=== PATIENT | male | born 1980 | race Two or more races ===

== ENCOUNTER 2016-03-13 09:48 | Emergency (ER) | payer OTHER ==
[2016-03-13] MEDS ORDERED: NS 1,000 ML IV ONE ×2 (09:52→10:13)
[2016-03-13] MEDS ORDERED: ONDANSETRON 4 MG/2 ML VIAL IVP ONE ×2 (09:52→11:02)
[2016-03-13 10:02] VITALS: RESP 16
[2016-03-13] MEDS ORDERED: LORazepam 2 MG/ML INJ IVP ONE (10:10)
[2016-03-13] MEDS ORDERED: FAMOTIDINE 20 MG/2 ML SDV IVP ONE (10:13)
--- NOTE | 2016-03-13 10:18 | EDPHY ---
[id number]. Source: Patient Exam Limitations: No limitations - Personal History Current Tetanus/Diphtheria Vaccine: Unsure Current Tetanus Diphtheria and Acellular Pertussis (TDAP): Unsure - Medical/Surgical History Hx Asthma: No Hx Chronic Respiratory Disease: No Hx Diabetes: No Hx Cardiac Disease: No Hx Renal Disease: No Hx Cirrhosis: No Hx Alcoholism: Yes Hx HIV/AIDS: No Hx Splenectomy or Spleen Trauma: No Other PMH: ETOH - Family History Significant Family History: No pertinent family hx - Social History Smoking Status: Never smoked Alcohol Use: Heavy (Binge drinker) Time Seen by Provider: 03/13/16 10:14 HPI/ROS: HPI: 35-year-old male presents to urgent care with chief concern nausea and vomiting. Reports drinking a 24 pack of beer every day for the past week. Last drink yesterday afternoon 4 p.m.. Reports mild 3/10 headache, mild tremors, nausea and vomiting. He denies fever, chills, dizziness, visual disturbance, visual or auditory hallucinations, tactile disturbance, sweating, shortness of breath, chest pain, abdominal pain, or diarrhea. He is a binge drinker who has withdrawn multiple times in the past. He denies ever having a seizure. He denies any physical trauma. ROS:10 point review of systems is negative other than as stated in HPI (Arabella Pisano) - Physical Exam Exam: Temp 36.4, heart rate 86, respiratory rate 16, blood pressure 145/99, 94% on room air, CIWA 9 General: Awake, alert, calm, cooperative. Mild distress Head: Normalocephalic. Atraumatic. EENT: PERRLA. EOMI. No pallor or injection. Anicteric. No nystagmus. No injection. TMs intact bilaterally with normal landmarks. No rhinnorhea, nasal passages clear. Oropharynx without erythema or lesions. Neck: Supple, nontender. No lymphadenopathy. Full range of motion. No meningismus. Respiratory: Breathing unlabored. Breath sounds equal bilaterally and clear to auscultation. No adventitious sounds. CV: Chest nontender, atraumatic. Heart rate regular. No murmur, distal pulses 2+ bilaterally. Brisk cap refill all extremities. GI: Abdomen soft, nontender. No organomegaly appreciated. Bowel sounds normoactive and positive x4 quadrants. Neuro: Alert. Oriented x 3. Speech clear. Nonfocal cranial nerves throughout. Sensation intact all extremities. Minor hand tremors. No tongue fasciculations. Skin: Skin warm, dry, intact. No rashes, abrasions, or lacerations. Skin turgor normal. Extremities: Full range of motion in all 4 extremities. Strength 5+ all extremities. (Arabella Pisano) Constitutional: Initial Vital Signs Temperature (C) 36.4 C 03/13/16 10:01 Heart Rate 86 03/13/16 10:01 Respiratory Rate 16 03/13/16 10:01 Blood Pressure 145/99 H 03/13/16 10:01 O2 Sat (%) 94 03/13/16 10:01 O2 Delivery Mode Room Air Allergies/Adverse Reactions: No Known Allergies Allergy (Verified 03/13/16 10:01) Home Medications: Medication Instructions Recorded Zofran Odt 02/25/16 Lorazepam [Ativan] 1 mg PO Q8 PRN #2 tablet 03/13/16 Ondansetron Odt [Zofran Odt 4 mg 4 mg PO Q4 PRN #6 tab 03/13/16 (*)] Medical Decision Making ED Course/Re-evaluation: This 35-year-old male presents to the urgent care because he has nausea and vomiting after finishing a binge of drinking yesterday afternoon. He reports drinking 24 beers per day for the past 5-7 days. Vitals are stable. Heart rate 86, blood pressure 145/99. His CIWA score is a 9. We will give him 2 L normal saline, 4 mg IV Zofran, 1 mg IV Ativan. I have offered transfer to the [facility] for alcohol withdrawal assistance and patient refuses. His niece is present in the room with him. 11:15-after 2 L of fluids, total of 8 mg IV Zofran, and 1 mg IV Ativan, patient tremors barely visible. CIWA 6. Vitals are stable with a heart rate of 80, blood pressure 138/87. Patient continues to decline transfer to [facility] for detox. He was given 1 mg oral Ativan at discharge. (Arabella Pisano) Urgent Care PA supervision Physician documentation: The patient was evaluated and managed by the physician advertising assistant. My co- signature indicates that I have reviewed this chart and I agree with the findings and plan of care as documented. I am the secondary supervising physician. (Demond Kebede) Differential Diagnosis: Alcohol withdrawal, metabolic derangement, alcohol withdrawal seizure (Arabella Pisano) - Data Points Laboratory Results: Laboratory Results 03/13/16 10:05 03/13/16 10:05 Medications Given: Discontinued Medications Famotidine (Pepcid) 20 mg IVP EDNOW ONE Stop: 03/13/16 10:14 Last Admin: 03/13/16 10:29 Dose: 20 mg Sodium Chloride (Ns) 1,000 mls @ 0 mls/hr IV EDNOW ONE PRN Reason: As Directed Stop: 03/13/16 09:53 Last Admin: 03/13/16 10:14 Dose: 1,000 mls Sodium Chloride (Ns) 1,000 mls @ 0 mls/hr IV ONCE ONE PRN Reason: Wide Open Stop: 03/13/16 10:14 Last Admin: 03/13/16 10:46 Dose: 1,000 mls Lorazepam (Ativan Injection) 1 mg IVP EDNOW ONE Stop: 03/13/16 10:11 Last Admin: 03/13/16 10:19 Dose: 1 mg Lorazepam (Ativan) 1 mg PO EDNOW ONE Stop: 03/13/16 11:04 Last Admin: 03/13/16 11:10 Dose: 1 mg Ondansetron HCl (Zofran) 4 mg IVP EDNOW ONE Stop: 03/13/16 09:53 Last Admin: 03/13/16 10:19 Dose: 4 mg Ondansetron HCl (Zofran) 4 mg IVP EDNOW ONE Stop: 03/13/16 11:03 Last Admin: 03/13/16 11:13 Dose: 4 mg Departure - Departure Disposition: Home, Routine, Self-Care Clinical Impression: Alcohol withdrawal Condition: Good Instructions: Alcohol Withdrawal (ED) Additional Instructions: Plan: You may use 1 Zofran every 4-6 hours as needed for nausea You may take 1 mg Ativan every 8 hours as needed, may not drink alcohol while on Ativan--Never drink or drive while taking this medication. This medication impairs decision making capacity so do not work or sign important documents while taking. This medication its constipating so drink plenty of fluids and consider an laih-lwe-lufmhyb stool softener such as docusate sodium (Colace) while taking this medication. This medication has addictive properties. You should use the least amount for the shortest amount of time. [facility] ED and Urgent Care do not refill narcotic pain medication prescriptions. This is a hospital policy. You will need to follow up as indicated for recheck for further narcotic refills. As we discussed, you must follow up with primary care tomorrow without fail-- When you call to schedule appointment, please let the office know you are an " ER follow up" appointment" You have been offered transfer to the [facility] for assistance with withdrawal and you have declined Stop drinking Referrals: DENISE SALGADO,. [Primary Care Provider] - As per Instructions Prescriptions: Lorazepam [Ativan] 1 mg PO Q8 PRN #2 tablet PRN Reason: tremors, alcohol withdrawal Ondansetron Odt [Zofran Odt 4 mg (*)] 4 mg PO Q4 PRN #6 tab PRN Reason: nausea, vomiting
[2016-03-13 10:20] LABS: % IMMATURE GRANULYOCYTES 0.5 % (0.0-1.1); ABSOLUTE IMMATURE GRANULOCYTES 0.02 10^3/uL (0.00-0.10); ADD DIFF? NO; ADD MORPH? NO; ADD SCAN? NO; ATYPICAL LYMPHOCYTE FLAG 0 (0-99); FRAGMENT RBC FLAG 0 (0-99); HEMATOCRIT 49.9 % (40.0-51.0); HEMOGLOBIN 16.9 g/dL (13.7-17.5); LEFT SHIFT FLG 0 (0-99); LIPEMIA HEMOLYSIS FLAG 90 (0-99); MEAN CELL HEMOGLOBIN 30.7 pg (27.9-34.1); MEAN CELL HEMOGLOBIN CONCENTR. 33.9 g/dL (32.4-36.7); MEAN CELL VOLUME 90.7 fL (81.5-99.8); MEAN PLATELET VOLUME 9.8 fL (8.7-11.7); PLATELET CLUMPS FLAG 0 (0-99); PLATELET COUNT 296 10^3/uL (150-400); RED CELL DISTRIBUTION WIDTH 13.6 % (11.5-15.2)
[2016-03-13 10:28] LABS: ALANINE AMINOTRANSFERASE 50 IU/L (21-72); ALBUMIN 4.3 g/dL (3.5-5.0); ALKALINE PHOSPHATASE 90 IU/L (38-126); ANION GAP 12 mEq/L (8-16); ASPARTATE AMINOTRANSFERASE 38 IU/L (17-59); BILIRUBIN-CONJUGATED 0.5 mg/dL (0.0-0.5); BILIRUBIN-UNCONJUGATED 0.5 mg/dL (0.0-1.1); CALCIUM 9.8 mg/dL (8.5-10.4); CARBON DIOXIDE 29 mEq/l (22-31); CHLORIDE 99 mEq/L (97-110); CREATININE 0.8 mg/dL (0.7-1.3); GLOMERULAR FILTRATION RATE > 60; GLUCOSE 99 mg/dL (70-100); MAGNESIUM 1.9 mg/dL (1.6-2.3); POTASSIUM 4.6 mEq/L (3.5-5.2); SODIUM 140 mEq/L (134-144); TOTAL PROTEIN 7.8 g/dL (6.3-8.2)
[2016-03-13] MEDS ORDERED: LORazepam 1 MG TAB PO ONE (11:03)
[2016-03-13 11:15] VITALS: BP 138/87; PULSE 80; TEMP 98.2; O2SAT 95
== END 2016-03-13 11:16 | disposition home or self-care (01) ==
LOC: CED 09:48
DX: F10.239 Alcohol dependence with withdrawal, unspecified (principal)
CPT/HCPCS: 80048-PO; 80076-PO; 83735-PO; 85025-PO; 96361-PO; 96374-PO; 96375-PO; 96376-PO; G0463-PO; J2405

== ENCOUNTER 2016-04-07 16:27 | Emergency (ER) | payer OTHER ==
[2016-04-07] MEDS ORDERED: NS 1,000 ML IV ONE ×3 (17:22→20:24)
[2016-04-07] MEDS ORDERED: ONDANSETRON 4 MG/2 ML VIAL IVP ONE ×2 (17:45→19:58)
[2016-04-07] MEDS ORDERED: LORazepam 2 MG/ML INJ IVP ONE (17:45)
[2016-04-07 17:51] LABS: % IMMATURE GRANULYOCYTES 0.1 % (0.0-1.1); ABSOLUTE IMMATURE GRANULOCYTES 0.01 10^3/uL (0.00-0.10); ADD DIFF? NO; ADD MORPH? NO; ADD SCAN? NO; ATYPICAL LYMPHOCYTE FLAG 0 (0-99); FRAGMENT RBC FLAG 0 (0-99); HEMATOCRIT 46.9 % (40.0-51.0); HEMOGLOBIN 16.5 g/dL (13.7-17.5); LEFT SHIFT FLG 0 (0-99); LIPEMIA HEMOLYSIS FLAG 90 (0-99); MEAN CELL HEMOGLOBIN 30.9 pg (27.9-34.1); MEAN CELL HEMOGLOBIN CONCENTR. 35.2 g/dL (32.4-36.7); MEAN CELL VOLUME 87.8 fL (81.5-99.8); MEAN PLATELET VOLUME 9.7 fL (8.7-11.7); PLATELET CLUMPS FLAG 0 (0-99); PLATELET COUNT 252 10^3/uL (150-400); RED BLOOD CELL COUNT 5.34 10^6/uL (4.40-6.38); RED CELL DISTRIBUTION WIDTH 13.2 % (11.5-15.2)
[2016-04-07 18:08] LABS: ALANINE AMINOTRANSFERASE 47 IU/L (21-72); ALKALINE PHOSPHATASE 89 IU/L (38-126); ANION GAP 15 mEq/L (8-16); ASPARTATE AMINOTRANSFERASE 63 IU/L (17-59); BILIRUBIN,TOTAL 0.7 mg/dL (0.1-1.4); CALCIUM 8.7 mg/dL (8.5-10.4); CARBON DIOXIDE 22 mEq/l (22-31); CHLORIDE 106 mEq/L (97-110); CREATININE 0.8 mg/dL (0.7-1.3); GLOMERULAR FILTRATION RATE > 60; GLUCOSE 134 mg/dL (70-100); POTASSIUM 3.9 mEq/L (3.5-5.2); SODIUM 143 mEq/L (134-144); TOTAL PROTEIN 7.4 g/dL (6.3-8.2)
--- NOTE | 2016-04-07 18:21 | UCPHY ---
H & P Patient Type: Established Chief Complaint Nursing Narrative: shaky, nausea after drinking . drinking steady for the last half a week . 20 drinks a day. They state he saw [facility] this wk and was given pills to help stop drinking but they cannot remember what the pills are called. Time Seen by Provider: 04/07/16 17:13 HPI/ROS: 35-year-old male presents complaining of nausea and vomiting after being on multiple week drinking binge. Review of systems General no fever no chills no weakness HEENT no eye pain no eye discharge. No eye redness, no sore throat Respiratory no cough, no shortness of breath Cardiac no chest pain, no peripheral edema GI no abdominal pain, no diarrhea, no constipation, positive nausea positive vomiting no flank pain, no hematuria, no dysuria Musculoskeletal positive myalgias, no joint pain Heme no easy bruising, no easy bleeding Endo no polyuria, no polydipsia Skin no rashes, no pruritus Neuro no syncope, no dizziness, no headaches Positive history of daily bingeing on alcohol and alcohol dependence Source: Patient Exam Limitations: Intoxication - Personal History Current Tetanus/Diphtheria Vaccine: Unsure - Medical/Surgical History Hx Asthma: No Hx Chronic Respiratory Disease: No Hx Diabetes: No Hx Cardiac Disease: No Hx Renal Disease: No Hx Cirrhosis: No Hx Alcoholism: Yes Hx HIV/AIDS: No Hx Splenectomy or Spleen Trauma: No Other PMH: [facility]CP [facility]. Tetanus NONE. Flu vacc NONE. SUrg none. Med Alcoholism - Family History Significant Family History: No pertinent family hx - Social History Smoking Status: Never smoked Alcohol Use: Heavy - Physical Exam Exam: 35-year-old male awake, smells of alcohol appears intoxicated, tachycardic, hypertensive Atraumatic normocephalic Extraocular muscles intact, anicteric, conjunctival erythema without discharge Oropharynx dry mucosa Neck supple no JVD Lungs clear to auscultation Heart rapid rate regular rhythm without murmur rub or gallop Abdomen nondistended bowel sounds present soft nontender Extremities mild edema in bilateral hands nonpitting, good capillary refill No cyanosis no clubbing Neuro-awake, able to answer questions, smells of alcohol however clinically appear sober No motor or sensory deficits No tremor No flap Constitutional: Initial Vital Signs Temperature (C) 36.8 C 04/07/16 16:52 Heart Rate 125 H 04/07/16 16:52 Respiratory Rate 20 04/07/16 16:52 Blood Pressure 141/92 H 04/07/16 16:52 O2 Sat (%) 97 04/07/16 16:52 O2 Delivery Mode Room Air O2 (L/minute) 2 Allergies/Adverse Reactions: No Known Allergies Allergy (Verified 04/07/16 17:04) Home Medications: Medication Instructions Recorded Zofran Odt 02/25/16 Lorazepam [Ativan] 1 mg PO Q8 PRN #2 tablet 03/13/16 Ondansetron Odt [Zofran Odt 4 mg 4 mg PO Q4 PRN #6 tab 03/13/16 (*)] Medical Decision Making ED Course/Re-evaluation: Patient seen and evaluated for vomiting after binge drinking Differential diagnosis Alcoholic gastritis, gastritis, gastroenteritis, pancreatitis, cholecystitis, alcohol withdrawal, opiate withdrawal Labs Alcohol 200 Lipase within normal limits CBC within normal limits CMP-AST mildly elevated Patient given several L IV normal saline to rehydrate, given Ativan 2 mg for symptoms of possible early withdrawal. Patient also given a total of 8 mg of Zofran followed by Reglan 10 mg Benadryl 25 mg for nausea As well as famotidine 20 mg IV piggyback for gastritis After observation and multiple medications and a stay of close to 6 hours patient able to tolerate p.o. fluids Discharged to home with Zofran and Librium Advised to go to his closest emergency department if he is feeling worse. Otherwise advised to follow up with his primary care physician - Data Points Laboratory Results: Laboratory Results 04/07/16 17:39 04/07/16 17:39 Medications Given: Discontinued Medications Chlordiazepoxide (Librium 25 Mg Prepack#6) 1 btl TAKEHOME EDNOW ONE Stop: 04/07/16 22:40 Last Admin: 04/07/16 22:47 Dose: 1 btl Diphenhydramine HCl (Benadryl Injection) 25 mg IVP EDNOW ONE Stop: 04/07/16 21:36 Last Admin: 04/07/16 21:43 Dose: 25 mg Famotidine (Pepcid) 20 mg IVP EDNOW ONE Stop: 04/07/16 20:03 Last Admin: 04/07/16 20:17 Dose: 20 mg Sodium Chloride (Ns) 1,000 mls @ 0 mls/hr IV ONCE ONE PRN Reason: Wide Open Stop: 04/07/16 17:23 Last Admin: 04/07/16 19:04 Dose: 1,000 mls Sodium Chloride (Ns) 1,000 mls @ 0 mls/hr IV ONCE ONE PRN Reason: Wide Open Stop: 04/07/16 17:46 Last Admin: 04/07/16 18:22 Dose: 1,000 mls Sodium Chloride (Ns) 1,000 mls @ 0 mls/hr IV ONCE ONE PRN Reason: Wide Open Stop: 04/07/16 20:25 Last Admin: 04/07/16 20:55 Dose: 1,000 mls Lorazepam (Ativan Injection) 2 mg IVP EDNOW ONE Stop: 04/07/16 17:46 Last Admin: 04/07/16 18:21 Dose: 2 mg Metoclopramide HCl (Reglan Injection) 10 mg IVP EDNOW ONE Stop: 04/07/16 21:36 Last Admin: 04/07/16 21:44 Dose: 10 mg Ondansetron HCl (Zofran) 4 mg IVP EDNOW ONE Stop: 04/07/16 17:46 Last Admin: 04/07/16 18:22 Dose: 4 mg Ondansetron HCl (Zofran) 4 mg IVP EDNOW ONE Stop: 04/07/16 19:59 Last Admin: 04/07/16 19:50 Dose: 4 mg Ondansetron HCl (Zofran Odt 4 Mg Prepack#2) 1 btl TAKEHOME EDNOW ONE Stop: 04/07/16 22:40 Last Admin: 04/07/16 22:48 Dose: 1 btl Departure - Departure Disposition: Home, Routine, Self-Care Clinical Impression: Alcoholic gastritis, Alcohol abuse, Alcohol intoxication Condition: Good Instructions: Abuse of Alcohol (ED), Alcohol Intoxication (ED), Gastritis (ED) Referrals: [facility],. [Primary Care Provider] - As per Instructions Print Language: Divehi - PQRS PQRS Measurement: na
[2016-04-07 19:15] LABS: ETHANOL SERUM 195 mg/dL (0-10)
[2016-04-07] MEDS ORDERED: ONDANSETRON 4 MG/2 ML VIAL ONE (19:39)
[2016-04-07] MEDS ORDERED: FAMOTIDINE 20 MG/2 ML SDV IVP ONE (20:02)
[2016-04-07] MEDS ORDERED: METOCLOPRAMIDE 10 MG/2 ML VIAL ONE (21:35)
[2016-04-07] MEDS ORDERED: METOCLOPRAMIDE 10 MG/2 ML VIAL IVP ONE (21:35)
[2016-04-07] MEDS ORDERED: CHLORDIAZEPOXIDE 25MG PREPK#6 BTL TAKEHOME ONE (22:39)
[2016-04-07] MEDS ORDERED: ONDANSETRON 4MG PREPACK#2 BTL TAKEHOME ONE (22:39)
[2016-04-07 23:10] VITALS: BP 113/78; PULSE 118; RESP 18; O2SAT 97
[2016-04-07 23:16] VITALS: TEMP 210.2
== END 2016-04-07 23:10 | disposition home or self-care (01) ==
LOC: CED 16:27
DX: R11.2 Nausea with vomiting, unspecified (principal); F10.129 Alcohol abuse with intoxication, unspecified
CPT/HCPCS: 80053-PO; 80307-PO; 83690-PO; 83735-PO; 85025-PO; 96361-PO; 96374-PO; 96375-PO; 96376-PO; 99215-PO; G0463-PO; G0480; J1200; J2405; J2765

== ENCOUNTER 2016-04-08 16:28 | Emergency (ER) | payer OTHER | END 2016-04-08 16:50 | disposition left against medical advice (07) | LOC: CED 16:28 | DX: Z53.21 Procedure and treatment not carried out due to patient leaving prior to being seen by health care provider (principal) ==

== ENCOUNTER 2016-04-29 17:02 | Emergency (ER) | payer OTHER ==
[2016-04-29 17:51] VITALS: RESP 16; TEMP 98.2; O2SAT 97
[2016-04-29] MEDS ORDERED: CHLORDIAZEPOXIDE 25MG PREPK#6 BTL TAKEHOME ONE (17:58)
[2016-04-29] MEDS ORDERED: ONDANSETRON 4MG PREPACK#2 BTL TAKEHOME ONE (17:58)
--- NOTE | 2016-04-29 17:58 | UCPHY ---
H & P Patient Type: Established Chief Complaint Nursing Narrative: PROBLEM WITH ALCOHOL Time Seen by Provider: 04/29/16 17:46 HPI/ROS: CHIEF COMPLAINT: Withdrawal HISTORY OF PRESENT ILLNESS: The patient is a 35-year-old man who comes to the emergency department complaining of withdrawal symptoms. He states that he typically drinks multiple beers per day. He states that his last drink was last night and this morning he began having tremors and nausea. He used all of the Zofran that he was prescribed last time he was here. He refuses to go to recovery Center. His family is here with him and plans to help him detox. REVIEW OF SYSTEMS: Constitutional: See HPI EENTM: denies: blurred vision, double vision, nose congestion Respiratory: denies: cough, shortness of breath Cardiac: denies: chest pain, irregular heart rate, lightheadedness, palpitations Gastrointestinal/Abdominal: See HPI Genitourinary: denies: dysuria, frequency, hematuria, pain Musculoskeletal: denies: joint pain, muscle pain Skin: denies: lesions, rash, jaundice, bruising Neurological: denies: headache, numbness, paresthesia, tingling, dizziness, weakness Hematologic/Lymphatic: denies: blood clots, easy bleeding, easy bruising Immunologic/allergic: denies: HIV/AIDS, transplant EXAM: GENERAL: Well-appearing, well-nourished and in no acute distress. HEAD: Atraumatic, normocephalic. EYES: Pupils equal round and reactive to light, extraocular movements intact, sclera anicteric, conjunctiva are normal. ENT: TMs normal, nares patent, oropharynx clear without exudates. Moist mucous membranes. NECK: Normal range of motion, supple without lymphadenopathy or JVD. LUNGS: Breath sounds clear to auscultation bilaterally and equal. No wheezes rales or rhonchi. HEART: Regular rate and rhythm without murmurs, rubs or gallops. ABDOMEN: Soft, nontender, normoactive bowel sounds. No guarding, no rebound. No masses appreciated. BACK: No CVA tenderness, no spinal tenderness, step-offs or deformities EXTREMITIES: Normal range of motion, no pitting or edema. No clubbing or cyanosis. NEUROLOGICAL: Cranial nerves II through XII grossly intact. Normal speech, normal gait. 5/5 strength, normal movement in all extremities, normal sensation PSYCH: Normal mood, normal affect. SKIN: Warm, dry, normal turgor, no visible rashes or lesions. Source: Patient Exam Limitations: No limitations - Personal History Current Tetanus/Diphtheria Vaccine: Yes - Medical/Surgical History Hx Asthma: No Hx Chronic Respiratory Disease: No Hx Diabetes: No Hx Cardiac Disease: No Hx Renal Disease: No Hx Cirrhosis: No Hx Alcoholism: Yes Hx HIV/AIDS: No Hx Splenectomy or Spleen Trauma: No Other PMH: [facility]. Tetanus NONE. Flu vacc NONE. SUrg none. Med Alcoholism. PSH/PMH DENIED OTHER THAN ALCOHOLIC - Family History Significant Family History: Hypertension - Social History Smoking Status: Never smoked Alcohol Use: Heavy Drug Use: Marijuana Constitutional: Initial Vital Signs Temperature (C) 36.8 C 04/29/16 17:25 Heart Rate 92 04/29/16 17:25 Respiratory Rate 16 04/29/16 17:25 Blood Pressure 162/99 H 04/29/16 17:25 O2 Sat (%) 97 04/29/16 17:25 O2 Delivery Mode Room Air Allergies/Adverse Reactions: No Known Allergies Allergy (Verified 04/07/16 17:04) Home Medications: Medication Instructions Recorded Zofran Odt 02/25/16 Lorazepam [Ativan] 1 mg PO Q8 PRN #2 tablet 03/13/16 Ondansetron Odt [Zofran Odt 4 mg 4 mg PO Q4 PRN #6 tab 03/13/16 (*)] Ondansetron Odt [Zofran Odt 4 mg 4 mg PO Q4 PRN #20 tab 04/29/16 (RX)] Medical Decision Making ED Course/Re-evaluation: The patient is well appearing. He is not tachycardic or tremulous. He is asking for a refill of Zofran. I will also start him on a take-home pack of Librium. I encouraged him repeatedly to go to recovery Center. His family states that they will take him to counseling and addiction recovery through private organizations. Differential Diagnosis: Partial list of the Differential diagnosis considered include but were not limited to; alcohol withdrawal, gastritis, vomiting, dehydration and although unlikely based on the history and physical exam, I also considered infection, peptic ulcer disease, acute coronary disease. I discussed these differential diagnoses and the plan with the patient as well as the usual and expected course. The patient understands that the diagnosis is provisional and that in medicine we are not always correct and that further workup is often warranted. Usual and customary warnings were given. All of the patient's questions were answered. The patient was instructed to return to the emergency department should the symptoms at all worsen or return, otherwise to followup with the physician as we discussed. - Data Points Medications Given: Discontinued Medications Chlordiazepoxide (Librium 25 Mg Prepack#6) 1 btl TAKEHOME EDNOW ONE Stop: 04/29/16 17:59 Last Admin: 04/29/16 18:11 Dose: 1 btl Ondansetron HCl (Zofran Odt 4 Mg Prepack#2) 1 btl TAKEHOME EDNOW ONE Stop: 04/29/16 17:59 Last Admin: 04/29/16 18:12 Dose: 1 btl Departure - Departure Disposition: Home, Routine, Self-Care Clinical Impression: Alcohol dependence Qualifiers: Substance use status: in withdrawal Complication of substance-induced condition : uncomplicated Qualified Code(s): F10.230 - Alcohol dependence with withdrawal , uncomplicated Condition: Fair Instructions: Chlordiazepoxide/Clidinium (By mouth), Ondansetron (By mouth), Alcohol Withdrawal (ED) Referrals: DENISE SALGADO,. [Primary Care Provider] - As per Instructions Prescriptions: Ondansetron Odt [Zofran Odt 4 mg (RX)] 4 mg PO Q4 PRN #20 tab PRN Reason: Nausea & Vomiting Print Language: Uzbek - PQRS PQRS Measurement: Not applicable
[2016-04-29 18:29] VITALS: BP 172/90; PULSE 99
== END 2016-04-29 18:27 | disposition home or self-care (01) ==
LOC: CED 17:02
DX: F10.239 Alcohol dependence with withdrawal, unspecified (principal)
CPT/HCPCS: G0463-PO

== ENCOUNTER 2016-07-02 20:21 | Emergency (ER) | payer OTHER ==
[2016-07-02] MEDS ORDERED: NS 1,000 ML IV ONE (20:55)
[2016-07-02] MEDS ORDERED: ONDANSETRON 4 MG/2 ML VIAL ONE (21:01)
[2016-07-02] MEDS ORDERED: ONDANSETRON 4 MG/2 ML VIAL IVP ONE (21:11)
--- NOTE | 2016-07-02 21:17 | CPEKG ---
Heart Rate: 85 RR Interval: 706 P-R Interval: 152 QRSD Interval: 90 QT Interval: 380 QTC Interval: 452 P Crocheron: 69 QRS Crocheron: 25 T Wave Crocheron: 35 EKG Severity - NORMAL ECG - EKG Impression: SINUS RHYTHM Electronically Signed By: Galen Woodson 02-Jul-2016 23:16:08
--- NOTE | 2016-07-02 22:26 | EDPHY ---
H & P Stated Complaint: ETOH w/d, last drink of beer this afternoon; hx of w/d - Personal History Current Tetanus/Diphtheria Vaccine: Yes Current Tetanus Diphtheria and Acellular Pertussis (TDAP): Yes Tetanus Vaccine Date: less than five years - Medical/Surgical History Hx Asthma: No Hx Chronic Respiratory Disease: No Hx Diabetes: No Hx Cardiac Disease: No Hx Renal Disease: No Hx Cirrhosis: No Hx Alcoholism: Yes Hx HIV/AIDS: No Hx Splenectomy or Spleen Trauma: No Other PMH: depression, insomnia, ETOH abuse. [facility]CP [facility]. Tetanus NONE. Flu vacc NONE. SUrg none. Med Alcoholism. PSH/PMH DENIED OTHER THAN ALCOHOLIC - Social History Smoking Status: Never smoked HPI/ROS: Chief complaint: Alcohol withdrawal History of present illness: This is a 35-year-old male who presents to the emergency department for alcohol withdrawal. Patient has a history of binge drinking and then withdrawing. Patient has been binge drinking for the last 1- 2 weeks. Last drink was yesterday. He states he feels like he is starting to withdraw. He feels lightheaded and short of breath. He believes this is anxiety. He has withdrawn before and has felt similar. Patient has never had severe withdrawal including seizures. He wants to attempt to treat at home with his family and seek outpatient treatment for his alcohol problem. (Jesus Stacy) - Physical Exam Exam: General Appearance: Alert, nontoxic. Eyes: Pupils equal and round no pallor or injection. ENT, Mouth: Mucous membranes moist. Respiratory: There are no retractions, lungs are clear to auscultation. Cardiovascular: Regular rate and rhythm. Gastrointestinal: Abdomen is soft and non tender, no masses, bowel sounds normal. Neurological: alert and oriented. Strength and sensation intact and symmetrical. No tremulousness. Skin: Warm and dry, no rashes. Musculoskeletal: Neck is supple non tender. Extremities are symmetrical, full range of motion. Psychiatric: Patient is oriented X 3, there is no agitation. (Jesus Stacy) Constitutional: Initial Vital Signs Temperature (C) 36.7 C 07/02/16 20:30 Heart Rate 89 07/02/16 20:30 Respiratory Rate 16 07/02/16 20:30 Blood Pressure 119/99 H 07/02/16 20:30 O2 Sat (%) 95 07/02/16 20:30 O2 Delivery Mode Room Air Allergies/Adverse Reactions: No Known Allergies Allergy (Verified 04/07/16 17:04) Home Medications: Medication Instructions Recorded Zofran Odt 02/25/16 Anti-Depressant 07/02/16 Ondansetron Odt [Zofran Odt 4 mg 4 mg PO Q4 #6 tab 07/02/16 (*)] Sleep Aid 07/02/16 Medical Decision Making - Diagnostics EKG Interpretation: EKG interpreted by me shows normal sinus rhythm normal interval and axis. QRS is normal there is no significant ST elevation or depression. The rate is 85 ( Galen Woodson) Imaging Results: Imaging Impressions Chest X-Ray 07/02/16 20:55 Impression: Query mild airways disease with no superimposed imposed acute cardiopulmonary abnormality identified. ED Course/Re-evaluation: I did not see this patient while he was in the emergency department. However his care was discussed with PA while the patient was in the department. I agree with treatment plan and management (Galen Woodson) Patient seen under the supervision of my secondary supervising physician Dr. Galen Woodson. Patient presents to the emergency department concerned he is going through alcohol withdrawal. Patient has a history of binge alcohol drinking and has recently stopped. On presentation patient is nontoxic. He has a benign physical exam. Vital signs are stable. I do not appreciate evidence of overt withdrawal. Patient is IV hydrated and treated with Zofran. He is discharged home with family. Home care is discussed. Return precautions are given. snath handle assembler was used to facilitate communication with patient. (Jesus Stacy) Differential Diagnosis: Included but not limited to alcohol intoxication, alcohol withdrawal, polysubstance abuse (Jesus Stacy) - Data Points Medications Given: Discontinued Medications Sodium Chloride (Ns) 1,000 mls @ 0 mls/hr IV ONCE ONE PRN Reason: Wide Open Stop: 07/02/16 20:56 Last Admin: 07/02/16 21:24 Dose: 1,000 mls Ondansetron HCl (Zofran) 4 mg IVP EDNOW ONE Stop: 07/02/16 21:12 Last Admin: 07/02/16 21:25 Dose: 4 mg Ondansetron HCl (Zofran Odt 4 Mg Prepack#2) 1 btl TAKEHOME EDNOW ONE Stop: 07/02/16 22:30 Last Admin: 07/02/16 22:40 Dose: 1 btl Departure - Departure Disposition: Home, Routine, Self-Care Clinical Impression: Alcoholic intoxication Qualifiers: Complication of substance-induced condition: uncomplicated Qualified Code(s): F10.120 - Alcohol abuse with intoxication, uncomplicated Condition: Good Instructions: Alcohol Intoxication (ED) Additional Instructions: Follow-up with primary care doctor for recheck If symptoms worsen or new symptoms develop return to the emergency room for recheck Kimberly concepción de seguimiento con donahue doctor primario para un chequeo de nuevo. Si empeoran adri sintomas o nuevos sintomas se desarollan regrese a la oni de emergencias para un chequeo de nuevo. Referrals: TAVON LAM [Other] - As per Instructions Prescriptions: Ondansetron Odt [Zofran Odt 4 mg (*)] 4 mg PO Q4 #6 tab Print Language: Kinyarwanda
[2016-07-02] MEDS ORDERED: ONDANSETRON 4MG PREPACK#2 BTL TAKEHOME ONE (22:29)
[2016-07-02 22:43] VITALS: BP 129/77; PULSE 80; RESP 14; TEMP 98.4; O2SAT 94
== END 2016-07-02 22:41 | disposition home or self-care (01) ==
DX: F10.120 Alcohol abuse with intoxication, uncomplicated (principal)
CPT/HCPCS: 96374; J2405

== ENCOUNTER 2016-07-03 21:40 | Emergency (ER) | payer OTHER ==
[2016-07-03 21:51] VITALS: RESP 16; TEMP 99; O2SAT 96
--- NOTE | 2016-07-03 21:55 | EDPHY ---
H & P Stated Complaint: janett, N/V x3d, binge drinking Time Seen by Provider: 07/03/16 21:49 - Personal History Tetanus Vaccine Date: less than five years - Medical/Surgical History Hx Asthma: No Hx Chronic Respiratory Disease: No Hx Diabetes: No Hx Cardiac Disease: No Hx Renal Disease: No Hx Cirrhosis: No Hx Alcoholism: Yes Hx HIV/AIDS: No Hx Splenectomy or Spleen Trauma: No Other PMH: depression, insomnia, ETOH abuse. PCP [facility]. Tetanus NONE. Flu vacc NONE. SUrg none. Med Alcoholism. PSH/PMH DENIED OTHER THAN ALCOHOLIC - Social History Smoking Status: Never smoked Constitutional: Initial Vital Signs Temperature (C) 37.2 C 07/03/16 21:46 Heart Rate 106 H 07/03/16 21:46 Respiratory Rate 16 07/03/16 21:46 Blood Pressure 118/85 H 07/03/16 21:46 O2 Sat (%) 96 07/03/16 21:46 O2 Delivery Mode Room Air Allergies/Adverse Reactions: No Known Allergies Allergy (Verified 04/07/16 17:04) Home Medications: Medication Instructions Recorded Zofran Odt 02/25/16 Anti-Depressant 07/02/16 Ondansetron Odt [Zofran Odt 4 mg 4 mg PO Q4 #6 tab 07/02/16 (*)] Sleep Aid 07/02/16 Medical Decision Making ED Course/Re-evaluation: CHIEF COMPLAINT: Binge drinking. HISTORY OF PRESENT ILLNESS: The patient is a 35-year-old male who presents because he has been drinking beer for 8 straight days. He has had more than twelve each day. He does have a prior history of binge drinking. He has no other complaints at this time. He went to rehab more than 5 years ago but has not been recently. 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 REVIEW OF SYSTEMS: A 10 point review of systems was performed and is negative with the exception of the elements mentioned in the history of present illness. PHYSICAL EXAM: HR, BP, O2 Sat, RR. Temp noted General Appearance: Alert, well hydrated, appropriate, and non-toxic appearing. Head: Atraumatic without scalp tenderness or obvious injury Eyes: Pupils equal, round, reactive to light and accommodation, EOMI, no trauma , no injection. Ears: Clear bilaterally, no perforation, normal landmarks Nose: Atraumatic, no rhinorrhea, clear. Throat: There is no erythema or exudates, no lesions, normal tonsils, mucus membranes moist. Neck: Supple, 2+ carotid upstroke, nontender, no lymphadenopathy. Respiratory: No retractions, no distress, no wheezes, and no accessory muscle use. Lungs are clear to auscultation bilaterally. Cardiovascular: Regular rate and rhythm, no murmurs, rubs, or gallops. Bilateral carotid, radial, dorsalis pedis, and posterior tibial pulses intact. Good capillary refill all extremities. Gastrointestinal: Abdomen is soft, nontender, non-distended, no masses, no rebound, no guarding, no peritoneal signs. Musculoskeletal: Normal active ROM of all extremities, atraumatic. Neurological: Alert, appropriate, and interactive. The patient has normal DTRs and non-focal cranial nerves, motor, sensory, and cerebellar exam. Skin: No rashes, good turgor, no nodules on palpation. Past medical history: Depression, insomnia. Family history: N/A. Social history: Alcohol abuse. MEDICAL DECISION MAKIN-year-old male presents because he has been binge drinking for the past 8 days. He reports drinking over 12 beers per day. He was seen in the ER last night and was sent home after IV fluids and Zofran. On presentation today his vitals are normal. I offered referral to the addiction recovery center but he declined. I explained that I cannot provide him with Ativan prescription and send him home as he keeps returning here and he must visit the [facility] for these. He and his family will decide what they would like to do and will report back. 1mg PO Ativan administered. 2215: Patient does not want to go to the [facility]. He will be given one take-home Ativan and discharged. Departure - Departure Disposition: Home, Routine, Self-Care Clinical Impression: Alcohol abuse Condition: Good Instructions: Abuse of Alcohol (ED) Additional Instructions: Follow up at the [facility] if you would like assistance with quitting drinking. Return for any serious worsening of condition. Referrals: [facility] [Other] - As per Instructions [facility] Detox 24 Hours [Outside] - As per Instructions Report Scribed for: Cullen Munguia Report Scribed by: Almas Webber Date of Report: 07/03/16 Time of Report: 22:03
[2016-07-03] MEDS ORDERED: LORazepam 1 MG TAB PO ONE (22:06)
[2016-07-03] MEDS ORDERED: LORAZEPAM 1 MG PREPACK#4 BTL TAKEHOME ONE (22:20)
[2016-07-03 23:05] VITALS: BP 118/77; PULSE 83
== END 2016-07-03 22:30 | disposition home or self-care (01) ==
DX: F10.10 Alcohol abuse, uncomplicated (principal)

== ENCOUNTER 2016-09-30 21:11 | Emergency (ER) | payer OTHER ==
[2016-09-30 21:37] VITALS: BP 144/90; PULSE 78; RESP 16; TEMP 97.7; O2SAT 98
[2016-09-30] MEDS ORDERED: ONDANSETRON DISINTEGRATING 4 MG TAB PO ONE (21:39)
[2016-09-30] MEDS ORDERED: OXYCODONE/APAP 5/325MG PREPACK#4 BTL TAKEHOME ONE (21:44)
[2016-09-30] MEDS ORDERED: ONDANSETRON 4MG PREPACK#2 BTL TAKEHOME ONE ×3 (21:48→21:50)
--- NOTE | 2016-09-30 21:48 | EDPHY ---
H & P Time Seen by Provider: 09/30/16 21:34 HPI/ROS: HPI Alcohol problems. 35-year-old male, long history of alcoholism. He has been seen multiple times in our emergency department for alcohol-related complaints. He reports he was drinking beer all day. He reports feeling lightheaded and nauseous right now. He is requesting medication for this. He is with his and daughter. ROS: Constitutional: No fever, no chills. As above. Respiratory: No cough. No shortness of breath. Cardiac: No chest pain, no palpitations. Gastrointestinal: No abdominal pain, no vomiting, no diarrhea. As above. Genitourinary: No hematuria. No dysuria or increased frequency with urination. No bloody stool or rectal bleeding. Musculoskeletal: No back pain. No neck pain. No myalgias or arthralgias. Skin: No rashes. Neurological: No headache. No focal weakness or altered sensation. Past medical history: Alcohol abuse. Drinks up to 20 beers or more a day. Social history: Here with his and daughter. Physical Exam: General Appearance: Alert, no distress. Odor of alcohol on his breath. This patient is responding to questions appropriately and in full sentences. This patient appears well-hydrated and well-nourished. Eyes: Pupils equal and round no pallor or injection. No lid edema, erythema or injection. Respiratory: There are no retractions, lungs are clear to auscultation with good air movement bilaterally. Cardiovascular: Regular rate and rhythm. No murmur. Gastrointestinal: Abdomen is soft and nontender, no masses, bowel sounds normal. No focal tenderness at McBurney's point. No Witt sign. Neurological: Motor sensory function is grossly intact. Cranial nerves are normal. Gait is normal. Skin: Warm and dry, no rashes. Musculoskeletal: Neck is supple and nontender. Extremities are symmetrical. All joints range without pain or impingement. Psychiatric: No agitation. No depression. Database: EKG: Imaging: Procedures: Emergency department course: The patient was given 4 mg of ODT Zofran. Will be discharged with this medication. I instructed him on the liability use of alcohol abuse. We discussed detox options. His vital signs reviewed and are normal except for some moderate hypertension. Follow-up and return to emergency department precautions discussed with him. All of his questions were answered. He was discharged in good condition with his and daughter. His is driving. Differential Diagnosis: The differential diagnosis on this patient includes but is not limited to alcohol intoxication, alcohol abuse. CVA, TIA, acute coronary syndrome, pancreatitis, cholecystitis, other surgical abdominal problem unlikely. This represents a partial list of diagnoses considered. These considerations are based on history, physical exam, past history, reassessment and diagnostic testing. Smoking Status: Never smoked Constitutional: Initial Vital Signs Temperature (C) 36.5 C 09/30/16 21:32 Heart Rate 78 09/30/16 21:32 Respiratory Rate 16 09/30/16 21:32 Blood Pressure 144/90 H 09/30/16 21:32 O2 Sat (%) 98 09/30/16 21:32 O2 Delivery Mode Room Air Allergies/Adverse Reactions: No Known Allergies Allergy (Verified 09/30/16 21:37) Home Medications: Medication Instructions Recorded Ondansetron Odt [Zofran Odt 4 mg 4 mg PO Q4PRN PRN #10 tab 09/30/16 (*)] Medical Decision Making - Data Points Medications Given: Discontinued Medications Ondansetron HCl (Zofran Odt) 4 mg PO EDNOW ONE Stop: 09/30/16 21:40 Last Admin: 09/30/16 22:04 Dose: 4 mg Ondansetron HCl (Zofran Odt 4 Mg Prepack#2) 1 btl TAKEHOME EDNOW ONE Stop: 09/30/16 21:51 Last Admin: 09/30/16 22:04 Dose: 1 btl Ondansetron HCl (Zofran Odt 4 Mg Prepack#2) 1 btl TAKEHOME EDNOW ONE Stop: 09/30/16 21:51 Last Admin: 09/30/16 22:05 Dose: Not Given Oxycodone/Acetaminophen (Percocet 5/325mg Prepack#4) 1 btl TAKEHOME EDNOW ONE Stop: 09/30/16 21:45 Last Admin: 09/30/16 21:50 Dose: Not Given Departure - Departure Disposition: Home, Routine, Self-Care Clinical Impression: Alcoholic intoxication, Alcohol dependence Condition: Good Instructions: Ondansetron (By mouth), Alcohol Intoxication (ED), Abuse of Alcohol (ED) Additional Instructions: Read and follow provided instructions. Follow-up with your primary care physician in 1-2 days for re-evaluation and to discuss detox program options. Take medication as prescribed. Zofran for nausea: 4 mg tablet under the tongue every 4 hours as needed for nausea and vomiting. Return to the emergency department for worsening symptoms or other serious concerns. Referrals: DENISE SALGADO,. [Primary Care Provider] - As per Instructions [facility] Detox 24 Hours [Outside] - As per Instructions Stand Alone Forms: [facility] Prescriptions: Ondansetron Odt [Zofran Odt 4 mg (*)] 4 mg PO Q4PRN PRN #10 tab PRN Reason: For Nausea & Vomiting
== END 2016-09-30 22:00 | disposition home or self-care (01) ==
LOC: CED 21:11
DX: F10.229 Alcohol dependence with intoxication, unspecified (principal)